=== PATIENT | male | born 1990 | race Two or more races ===

== ENCOUNTER 2022-05-11 09:28 | Emergency (ER) | payer SELFPAY ==
[~2022-05-11] VITALS: Ht 172.7 cm; Wt 230.0 kg
[2022-05-11 10:20] VITALS: BP 126/43
[2022-05-11] MEDS ORDERED: KETOROLAC TROMETH 60MG/2ML VIAL IM ONE (10:45)
[2022-05-11] MEDS ORDERED: IBUP800T27 PO (11:02)
== END 2022-05-11 11:07 | disposition home or self-care (01) ==
LOC: ER 09:37
DX: M62.830 Muscle spasm of back (principal)
CPT/HCPCS: 96372; 99283; J1885